=== PATIENT | female | born 1945 | race Two or more races ===

== ENCOUNTER → 2018-05-31 | Outpatient (CLI) | payer OTHER | END | disposition home or self-care (01) | LOC: SONOGRAMA 12:14 → MAMO-SONO 12:45 | DX: E21.2 Other hyperparathyroidism (principal); E04.1 Nontoxic single thyroid nodule ==

== ENCOUNTER 2018-06-22 09:12 | Outpatient (CLI) | payer OTHER | END 2018-06-22 09:23 | disposition home or self-care (01) | LOC: SONOGRAMA 09:12 | DX: E04.2 Nontoxic multinodular goiter (principal) ==

== ENCOUNTER 2021-01-19 10:01 | Outpatient (CLI) | payer OTHER | END 2021-01-19 10:08 | disposition home or self-care (01) | LOC: SONOGRAMA 10:01 → MAMO-SONO 10:30 | PROVIDERS: ATTEND Internal Medicine Endocrinology, Diabetes & Metabolism | DX: E04.1 Nontoxic single thyroid nodule (principal) ==

== ENCOUNTER → 2021-03-17 09:35 | Outpatient (CLI) | payer OTHER | END | disposition home or self-care (01) | LOC: LAB 09:35 | PROVIDERS: ATTEND Internal Medicine Endocrinology, Diabetes & Metabolism | DX: N39.0 Urinary tract infection, site not specified (principal) ==

== ENCOUNTER → 2023-01-10 | Outpatient (CLI) | payer OTHER | END | disposition home or self-care (01) | LOC: RAD 11:21 | DX: M25.512 Pain in left shoulder (principal) ==

== ENCOUNTER 2023-04-15 18:47 | Emergency (ER) | payer OTHER ==
[~2023-04-15] VITALS: Ht 162.6 cm; Wt 62.6 kg
== END 2023-04-15 21:37 | disposition home or self-care (01) ==
LOC: ER 18:47
DX: F41.8 Other specified anxiety disorders (principal); Z88.6 Allergy status to analgesic agent; Z88.0 Allergy status to penicillin; Z88.2 Allergy status to sulfonamides
CPT/HCPCS: 96372; 99283; J1200

== ENCOUNTER 2023-06-24 10:20 | Outpatient (CLI) | payer OTHER | END 2023-06-24 10:29 | disposition home or self-care (01) | LOC: MAMO-SONO 10:20 | DX: N60.11 Diffuse cystic mastopathy of right breast (principal); N60.12 Diffuse cystic mastopathy of left breast; Z12.31 Encounter for screening mammogram for malignant neoplasm of breast ==

== ENCOUNTER 2024-11-02 10:32 | Outpatient (CLI) | payer OTHER | END 2024-11-02 10:41 | disposition home or self-care (01) | LOC: MAMO-SONO 10:32 | DX: N63.12 Unspecified lump in the right breast, upper inner quadrant (principal); N63.24 Unspecified lump in the left breast, lower inner quadrant; Z12.31 Encounter for screening mammogram for malignant neoplasm of breast ==